=== PATIENT | male | born 1945 | race Caucasian/White ===

== ENCOUNTER 2016-12-09 10:13 | Inpatient (IN) | payer MEDICARE, BC ==
[2016-12-09] VITALS (7 sets, daily range): BP systolic 135–146; BP diastolic 62–91; PULSE 93–98; RESP 20; Ht 177.8 cm; Wt 88.6 kg
[~2016-12-09] VITALS: Ht 177.8 cm; Wt 88.6 kg
[2016-12-09] MEDS ORDERED: DEXTROSE 50% 50 ML SYRINGE IV PRN ×2 (12:00)
[2016-12-09] MEDS ORDERED: GLUCOSE GEL 15 GRAM TUBE BUCCAL PRN (12:00)
[2016-12-09] MEDS ORDERED: GLUCAGON 1 MG INJ IM PRN (12:00)
[2016-12-09] MEDS ORDERED: GLUCOSE GEL 15 GRAM TUBE PO PRN ×2 (12:00)
--- NOTE | 2016-12-09 12:02 | CONS ---
Date/Time of Note Date/Time of Note DATE: 12/09/16 TIME: 11:54 Assessment/Plan Assessment/Plan Chief Complaint/Hosp Course 1) pneumonia, failed out pt therapy hx of MRSA bacteremia in the past get nasal swab for MRSA get sputum cx get repeat CXR start ceftriaxone with doxycycline check procalcitonin doubt viral infection 2) CAD with hx of ND and CABG 3)hx of lumbar osteomyelitis with MRSA bacteremia no sign of infection for this Problems: Consultation Date/Type/Reason Admit Date/Time Dec 09, 2016 at 10:59 Date of Consultation: Dec 09, 2016 Type of Consultation: ID Hx of Present Illness pt admitted due to persistent cough of green phlegm despite oral amoxicillin and then oral azithro He has been sick for about 10 days. He had a fever about 5 days ago. He had been feeling better up to that time then he also developed a new sore throat, mostly on the R side and R ear pain too He developed a chill yesterday No N, V, D. No back pain, rashes, muscle aches, joint pains. Past Medical History dm, CAD, MT, hypertension, foot ulcers, Lumbar osteomyelitis with MRSA bacteremia Past Surgical History CABG Exam/Review of Systems Vital Signs Vitals Vital Signs Date Time Temp Pulse Resp B/P Pulse Ox O2 Delivery O2 Flow Rate FiO2 12/09/16 11:50 94 Exam Constitutional: alert, oriented Psych: no complaints Head: normocephalic Eyes: nl conjunctiva, nl sclera ENMT: mucosa pink and moist Neck: other (no lymph nodes appreciated), supple Respiratory: clear to auscultation Cardiovascular: regular rate and rhythm Gastrointestinal: non-tender, soft Musculoskeletal: nl extremities to inspection Neurological: other (non focal) Lymph: nl lymph nodes Medications Medications Current Medications Doxycycline Hyclate (Vibramycin) 100 mg BID PO ; Start 12/09/16 at 12:00; Status UNV Miscellaneous Information (* Miscellaneous Pharmacy Order) HYPOGLYCEMIA PROTOCOL w... ONCE ONCE XX ; Start 12/09/16 at 12:00; Stop 12/09/16 at 12:01 Miscellaneous Information (* Miscellaneous Pharmacy Order) Discontinue Glyburide , Glipizide,... ONCE ONCE XX ; Start 12/09/16 at 12:00; Stop 12/09/16 at 12:01 Miscellaneous Information (* Miscellaneous Pharmacy Order) Discontinue all previ... ONCE ONCE XX ; Start 12/09/16 at 12:00; Stop 12/09/16 at 12:01 Diagnostic Test (Pha) (Accu-Chek) 02 XX ; Start 12/10/16 at 02:00 JESSICA CARBALLO MD Dec 09, 2016 12:02
[2016-12-09] MEDS ORDERED: CARV12.598 PO (13:18)
[2016-12-09] MEDS: DOXYCYCLINE 100 MG TAB PO SCH ×2 (13:23→20:55)
[2016-12-09 13:25] LABS: ADD SCAN DIFF NO
[2016-12-09] MEDS: INSULIN ASPART [NOVOLOG] 3 ML PEN SC SCH ×3 (13:25→20:53)
[2016-12-09 13:26] LABS: ABNORMAL IP MESSAGE 1; HEMATOCRIT 32.6 % (42.0-52.0); HEMOGLOBIN 10.9 g/dl (14.0-18.0); MEAN CORPUSCULAR HEMOGLOBIN 29.6 pg (29.0-33.0); MEAN CORPUSCULAR HGB CONC 33.4 g/dl (32.0-37.0); MEAN CORPUSCULAR VOLUME 88.6 fl (82.0-101.0); MEAN PLATELET VOLUME 8.6 fl (7.4-10.4); PLATELET COUNT 247 10^3/UL (140-415); RED BLOOD COUNT 3.68 10^6/ul (4.70-6.10); RED CELL DISTRIBUTION WIDTH 13.4 % (11.5-14.5); WHITE BLOOD COUNT 18.1 10^3/ul (4.8-10.8)
[2016-12-09] MEDS ORDERED: CEPASTAT LOZENGE MT PRN (13:30)
[2016-12-09] MEDS ORDERED: PHENOL 1.4% SOLN 180 ML BTL MT PRN (13:30)
--- NOTE | 2016-12-09 13:32 | CONS ---
Date/Time of Note Date/Time of Note DATE: 12/09/16 TIME: 13:32 Consultation Date/Type/Reason Admit Date/Time Dec 09, 2016 at 10:59 Initial Consult Date 12/09/16 Type of Consultation: hemeonc Exam/Review of Systems Vital Signs Vitals Vital Signs Date Time Temp Pulse Resp B/P Pulse Ox O2 Delivery O2 Flow Rate FiO2 12/09/16 12:19 98.7 98 20 135/62 97 Results Results 24 hrs Laboratory Tests Test 12/09/16 12:16 Bedside Glucose 174 Medications Medications Current Medications Doxycycline Hyclate (Vibramycin) 100 mg BID PO Last administered on 12/09/16t 13 :23; Admin Dose 100 MG; Start 12/09/16 at 13:00 Diagnostic Test (Pha) 1 ea 1 ea 02 XX ; Start 12/10/16 at 02:00 Ceftriaxone Sodium (Rocephin) 50 ml @ 100 mls/hr Q24H IVPB ; Start 12/09/16 at 13:00 Miscellaneous Information 1 ea NOTE XX ; Start 12/09/16 at 12:00 Glucose (Glutose) 15 gm Q15M PRN PO DECREASED GLUCOSE; Start 12/09/16 at 12:00 Glucose (Glutose) 22.5 gm Q15M PRN PO DECREASED GLUCOSE; Start 12/09/16 at 12:00 Dextrose (D50w Syringe) 25 ml Q15M PRN IV DECREASED GLUCOSE; Start 12/09/16 at 12:00 Dextrose (D50w Syringe) 50 ml Q15M PRN IV DECREASED GLUCOSE; Start 12/09/16 at 12:00 Glucagon (Glucagen) 1 mg Q15M PRN IM DECREASED GLUCOSE; Start 12/09/16 at 12:00 Glucose (Glutose) 15 gm Q15M PRN BUCCAL DECREASED GLUCOSE; Start 12/09/16 at 12: 00 JESÚS KIM MD Dec 09, 2016 13:32
[2016-12-09] MEDS: CEFTRIAXONE 1 GM/50 ML (PMX) 50 ML IVPB SCH (13:47)
[2016-12-09 13:49] LABS: ALBUMIN 3.8 g/dl (3.3-4.9)
[2016-12-09 13:50] LABS: CHLORIDE 104 mmol/L (97-110); POTASSIUM 4.7 mmol/L (3.5-5.1); SODIUM 135 mmol/L (135-144)
[2016-12-09 13:52] LABS: ALBUMIN/GLOBULIN RATIO 1.22; ALKALINE PHOSPHATASE 93 IU/L (42-121); ANION GAP 12 (8-16); ASPARTATE AMINO TRANSFERASE 27 IU/L (15-46); BILIRUBIN,INDIRECT 0.2 mg/dl (0-1.1); BILIRUBIN,TOTAL 0.2 mg/dl (0.2-1.3); BLOOD UREA NITROGEN 25 mg/dl (7-20); CARBON DIOXIDE 24 mmol/L (21-31); CHOLESTEROL 105 mg/dl (100-200); CREATININE 1.46 mg/dl (0.61-1.24); TOTAL PROTEIN 6.9 g/dl (6.1-8.1)
[2016-12-09 13:53] LABS: ALANINE AMINOTRANSFERASE 36 IU/L (13-69); CALCIUM 9.5 mg/dl (8.4-10.2); CHOL/HDL RATIO 5.5 RATIO; GLUCOSE 173 mg/dl (70-220); HDL CHOLESTEROL 19 mg/dl (31-75); TRIGLYCERIDES 133 mg/dl (0-149)
[2016-12-09 14:15] LABS: ADD UMIC NO; URINE BILIRUBIN (Dip) NEGATIVE (NEGATIVE); URINE BLOOD (Dip) NEGATIVE (NEGATIVE); URINE COLOR YELLOW (YELLOW); URINE GLUCOSE (Dip) NEGATIVE (NEGATIVE); URINE KETONES (Dip) NEGATIVE (NEGATIVE); URINE LEUKOCYTE ESTERASE (Dip) NEGATIVE (NEGATIVE); URINE NITRITE (Dip) NEGATIVE (NEGATIVE); URINE TOTAL PROTEIN (Dip) NEGATIVE (NEGATIVE); URINE UROBILINOGEN (Dip) 0.2 E.U./dL (0.1-1.0)
[2016-12-09 14:41] LABS: URIC ACID 5.9 mg/dl (3.1-7.9)
[2016-12-09 14:55] LABS: B-TYPE NATRIURETIC PEPTIDE 1840 PG/ML (0-125)
[2016-12-09 14:57] LABS: IMMUNOGLOBULIN G 498 mg/dl (700-1600)
[2016-12-09 14:59] LABS: IMMUNOGLOBULIN A 51 mg/dl (70-400)
[2016-12-09 15:03] LABS: FREE T3 2.93 pg/ml (2.77-5.27)
[2016-12-09 15:06] LABS: BASOPHIL # 0.2 10^3/ul (0.0-0.1); LYMPHOCYTES # 7.6 10^3/ul (0.8-2.9); MONOCYTE # 0.9 10^3/ul (0.3-0.9); NEUTROPHIL # 7.1 10^3/ul (1.6-7.5)
--- NOTE | 2016-12-09 15:12 | RADRPT ---
PROCEDURE: XR Chest. CLINICAL INDICATION: Chills, cough TECHNIQUE: PA and lateral chest x-ray. COMPARISON: None. FINDINGS: No acute infiltrate, pleural effusion or pneumothorax is identified. The cardiomediastinal silhouet te is unremarkable. The patient is status post sternotomy. Aortic atherosclerotic calcification is noted. The osseous structures are unremarkable. IMPRESSION: 1. No evidence of acute cardiopulmonary process. 2. Aortic atherosclerosis. RPTAT: QQ .Adalberto Persaud MD, MD Date Time Electronically viewed and signed by .Adalberto Persaud MD, on 12/09/2016 15:12 .R/
[2016-12-09 15:17] LABS: TRIIODOTHYRONINE 0.88 ng/ml (0.97-1.69)
[2016-12-09 15:22] LABS: FOLATE > 20.0 ng/ml (2.8-20.0)
[2016-12-09 15:30] LABS: IMMUNOGLOBULIN M < 25 mg/dl (40-230)
[2016-12-09] MEDS: metFORMIN 500 MG TAB PO SCH (17:07)
[2016-12-09] MEDS: VITAMIN B COMPLEX/VIT C CAP PO SCH (17:07)
[2016-12-09] MEDS: ATORVASTATIN 80 MG TAB PO SCH (20:55)
[2016-12-09] MEDS: LACTOBACILLUS CHEW TAB PO SCH (20:55)
[2016-12-09] MEDS: FERROUS SULFATE (EC) 325 MG TAB PO SCH (20:55)
[2016-12-09] MEDS: DOCUSATE SODIUM 100 MG CAP PO SCH (20:56)
[2016-12-09] MEDS: FAMOTIDINE 20 MG TAB PO SCH (20:56)
[2016-12-09] MEDS: MAGNESIUM OXIDE 400 MG TAB PO SCH (21:55)
[2016-12-10] VITALS (11 sets, daily range): BP systolic 114–148; BP diastolic 58–78; PULSE 75–99; RESP 19–20
[2016-12-10] MEDS: ACCU-CHEK XX SCH (02:00)
[2016-12-10 08:13] LABS: ADD SCAN DIFF NO
[2016-12-10] MEDS: CHOLECALCIFEROL 1,000 UNIT TAB PO SCH (08:20)
[2016-12-10] MEDS: FISH OIL 1,000 MG CAP PO SCH (08:20)
[2016-12-10] MEDS: FERROUS SULFATE (EC) 325 MG TAB PO SCH ×2 (08:20→21:05)
[2016-12-10] MEDS: MAGNESIUM OXIDE 400 MG TAB PO SCH ×2 (08:21→21:05)
[2016-12-10] MEDS: MULTIVITAMINS THERAPEUTIC TAB PO SCH (08:21)
[2016-12-10] MEDS: LACTOBACILLUS CHEW TAB PO SCH ×3 (08:21→21:06)
[2016-12-10] MEDS: CLOPIDOGREL 75 MG TAB PO SCH (08:21)
[2016-12-10] MEDS: DOCUSATE SODIUM 100 MG CAP PO SCH ×2 (08:21→21:05)
[2016-12-10] MEDS: LINAGLIPTIN 5 MG TABLET PO SCH (08:21)
[2016-12-10] MEDS: ASPIRIN 81 MG TAB PO SCH (08:21)
[2016-12-10] MEDS: FAMOTIDINE 20 MG TAB PO SCH ×2 (08:21→21:05)
[2016-12-10] MEDS: metFORMIN 500 MG TAB PO SCH ×2 (08:21→17:17)
[2016-12-10] MEDS: ASCORBIC ACID 250 MG TAB PO SCH (08:21)
[2016-12-10] MEDS: VALSARTAN 80 MG TAB PO SCH (08:22)
[2016-12-10] MEDS: INSULIN ASPART [NOVOLOG] 3 ML PEN SC SCH ×4 (08:25→21:11)
[2016-12-10 08:28] LABS: ABNORMAL IP MESSAGE 1; HEMATOCRIT 31.9 % (42.0-52.0); HEMOGLOBIN 10.4 g/dl (14.0-18.0); MEAN CORPUSCULAR HGB CONC 32.6 g/dl (32.0-37.0); MEAN CORPUSCULAR VOLUME 88.9 fl (82.0-101.0); MEAN PLATELET VOLUME 8.7 fl (7.4-10.4); PLATELET COUNT 236 10^3/UL (140-415); RED BLOOD COUNT 3.59 10^6/ul (4.70-6.10); RED CELL DISTRIBUTION WIDTH 13.6 % (11.5-14.5)
[2016-12-10] MEDS: DOXYCYCLINE 100 MG TAB PO SCH ×2 (08:28→21:05)
[2016-12-10 08:39] LABS: ALBUMIN 3.5 g/dl (3.3-4.9); POTASSIUM 4.7 mmol/L (3.5-5.1)
[2016-12-10 08:41] LABS: CREATININE 1.29 mg/dl (0.61-1.24)
[2016-12-10 08:42] LABS: ALBUMIN/GLOBULIN RATIO 1.2; BILIRUBIN,INDIRECT 0.2 mg/dl (0-1.1); BILIRUBIN,TOTAL 0.2 mg/dl (0.2-1.3); CALCIUM 9.3 mg/dl (8.4-10.2); TOTAL PROTEIN 6.4 g/dl (6.1-8.1)
--- NOTE | 2016-12-10 10:34 | CONS ---
Date/Time of Note Date/Time of Note DATE: 12/10/16 TIME: 10:34 Consultation Date/Type/Reason Admit Date/Time Dec 09, 2016 at 10:59 Initial Consult Date 12/09/16 Type of Consultation: [facility] [place] Exam/Review of Systems Vital Signs Vitals Vital Signs Date Time Temp Pulse Resp B/P Pulse Ox O2 Delivery O2 Flow Rate FiO2 12/10/16 08:05 75 12/10/16 07:37 99.1 20 136/74 94 Intake and Output 12/09/16 12/09/16 12/10/16 15:00 23:00 07:00 Intake Total 720 ml Balance 720 ml Results Result Diagram: 12/10/16 0724 12/10/1624 Results 24 hrs Laboratory Tests Test 12/09/16 12:16 12/09/16 12:52 12/09/16 13:00 12/09/16 17:01 Bedside Glucose 174 228 H White Blood Count 18.1 #H Red Blood Count 3.68 #L Hemoglobin 10.9 L Hematocrit 32.6 L Mean Corpuscular Volume 88.6 Mean Corpuscular Hemoglobin 29.6 Mean Corpuscular Hemoglobin Concent 33.4 Red Cell Distribution Width 13.4 # Platelet Count 247 Mean Platelet Volume 8.6 # Neutrophils % 39.0 Band Neutrophils % 9.0 H Lymphocytes % 42.0 Reactive Lymphocytes % 4.0 Monocytes % 5.0 Basophils % 1.0 Neutrophils # 7.1 Lymphocytes # 7.6 H Monocytes # 0.9 Basophils # 0.2 H Erythrocyte Sedimentation Rate 70.0 H Sodium Level 135 Potassium Level 4.7 Chloride Level 104 Carbon Dioxide Level 24 Anion Gap 12 Blood Urea Nitrogen 25 H Creatinine 1.46 H Glucose Level 173 Hemoglobin A1c 8.2 H Uric Acid 5.9 Calcium Level 9.5 Magnesium Level 2.0 Total Bilirubin 0.2 Direct Bilirubin 0.00 Indirect Bilirubin 0.2 Aspartate Amino Transf (AST/SGOT) 27 Alanine Aminotransferase (ALT/SGPT) 36 Alkaline Phosphatase 93 B-Type Natriuretic Peptide 1840 H Total Protein 6.9 Albumin 3.8 Globulin 3.10 Albumin/Globulin Ratio 1.22 Prealbumin 19.7 Triglycerides Level 133 Cholesterol Level 105 LDL Cholesterol, Calculated 59 HDL Cholesterol 19 L Cholesterol/HDL Ratio 5.5 Vitamin B12 Level 911 Folate > 20.0 H Thyroid Stimulating Hormone (TSH) 1.250 Free Triiodothyronine (T3) pg/mL 2.93 Total Triiodothyronine 0.88 L Parathyroid Hormone (Intact) Immunoglobulin A 51 L Immunoglobulin G 498 L Immunoglobulin M < 25 L Urine Color YELLOW Urine Clarity CLEAR Urine pH 5.0 Urine Specific [place] 1.020 Urine Ketones NEGATIVE Urine Nitrite NEGATIVE Urine Bilirubin NEGATIVE Urine Urobilinogen 0.2 E.U./dL Urine Leukocyte Esterase NEGATIVE Urine Hemoglobin NEGATIVE Urine Glucose NEGATIVE Urine Total Protein NEGATIVE Test 12/09/16 20:51 12/10/16 02:07 12/10/16 07:24 12/10/16 07:30 Bedside Glucose 254 H 222 H 232 H White Blood Count 20.3 H Red Blood Count 3.59 L Hemoglobin 10.4 L Hematocrit 31.9 L Mean Corpuscular Volume 88.9 Mean Corpuscular Hemoglobin 29.0 Mean Corpuscular Hemoglobin Concent 32.6 Red Cell Distribution Width 13.6 Platelet Count 236 Mean Platelet Volume 8.7 Neutrophils % Lymphocytes % Monocytes % Neutrophils # Lymphocytes # Monocytes # Sodium Level 135 Potassium Level 4.7 Chloride Level 105 Carbon Dioxide Level 23 Anion Gap 12 Blood Urea Nitrogen 25 H Creatinine 1.29 H Glucose Level 224 H Calcium Level 9.3 Total Bilirubin 0.2 Direct Bilirubin 0.00 Indirect Bilirubin 0.2 Aspartate Amino Transf (AST/SGOT) 21 Alanine Aminotransferase (ALT/SGPT) 32 Alkaline Phosphatase 84 Total Protein 6.4 Albumin 3.5 Globulin 2.90 Albumin/Globulin Ratio 1.20 Medications Medications Current Medications Doxycycline Hyclate (Vibramycin) 100 mg BID PO Last administered on 12/10/16 08 :28; Admin Dose 100 MG; Start 12/09/16 at 13:00 Diagnostic Test (Pha) 1 ea 1 ea 02 XX ; Start 12/10/16 at 02:00 Ceftriaxone Sodium (Rocephin) 50 ml @ 100 mls/hr Q24H IVPB Last administered on 12/09/16 13:47; Admin Dose 100 MLS/HR; Start 12/09/16 at 13:00 Miscellaneous Information 1 ea NOTE XX ; Start 12/09/16 at 12:00 Glucose (Glutose) 15 gm Q15M PRN PO DECREASED GLUCOSE; Start 12/09/16 at 12:00 Glucose (Glutose) 22.5 gm Q15M PRN PO DECREASED GLUCOSE; Start 12/09/16 at 12:00 Dextrose (D50w Syringe) 25 ml Q15M PRN IV DECREASED GLUCOSE; Start 12/09/16 at 12:00 Dextrose (D50w Syringe) 50 ml Q15M PRN IV DECREASED GLUCOSE; Start 12/09/16 at 12:00 Glucagon (Glucagen) 1 mg Q15M PRN IM DECREASED GLUCOSE; Start 12/09/16 at 12:00 Glucose (Glutose) 15 gm Q15M PRN BUCCAL DECREASED GLUCOSE; Start 12/09/16 at 12: 00 Carvedilol (Coreg) 12.5 mg BID PO Last administered on 12/10/16 08:23; Admin Dose 12.5 MG; Start 12/09/16 at 21:00 Spironolactone (Aldactone) 25 mg MONWEDFRI PO ; Start 12/11/16 at 09:00 Aspirin (Aspirin) 81 mg DAILY PO Last administered on 12/10/16 08:21; Admin Dose 81 MG; Start 12/10/16 at 09:00 Clopidogrel Bisulfate (plaVIX) 75 mg DAILY PO Last administered on 12/10/16 08: 21; Admin Dose 75 MG; Start 12/10/16 at 09:00 Lactobacillus Acidoph/Bulgaricus (Floranex) 2 tab TID PO Last administered on 08:21; Admin Dose 2 TAB; Start 12/09/16 at 21:00 Docusate Sodium (Colace) 100 mg BID PO Last administered on 12/10/16 08:21; Admin Dose 100 MG; Start 12/09/16 at 21:00 Atorvastatin Calcium (Lipitor) 80 mg HS PO Last administered on 12/09/16 20:55 ; Admin Dose 80 MG; Start 12/09/16 at 21:00 Magnesium Oxide (Mag-Ox 400) 400 mg BID PO Last administered on 12/10/16 08:21 ; Admin Dose 400 MG; Start 12/09/16 at 21:00 Multivitamins Therapeutic (Theragran) 1 tab DAILY PO Last administered on 08:21; Admin Dose 1 TAB; Start 12/10/16 at 09:00 Fish Oil (Fish Oil) 4,000 mg AM PO Last administered on 12/10/16 08:20; Admin Dose 4,000 MG; Start 12/10/16 at 09:00 Famotidine (Pepcid) 10 mg BID PO Last administered on 12/10/16 08:21; Admin Dose 10 MG; Start 12/09/16 at 21:00 Valsartan (Diovan) 80 mg DAILY PO Last administered on 12/10/16 08:22; Admin Dose 80 MG; Start 12/10/16 at 09:00 Ascorbic Acid (Vitamin C) 250 mg DAILY PO Last administered on 12/10/16 08:21; Admin Dose 250 MG; Start 12/10/16 at 09:00 Linagliptin (Tradjenta) 5 mg DAILY PO Last administered on 12/10/16 08:21; Admin Dose 5 MG; Start 12/10/16 at 09:00 Ferrous Sulfate (Ferrous Sulfate (Ec)) 325 mg BID PO Last administered on 08:20; Admin Dose 325 MG; Start 12/09/16 at 21:00 Phenol (Cepastat Lozenge) 1 lozenge Q1H PRN [place] sore throat; Start 12/09/16 at 13 :30 Phenol (Chloraseptic Throat [place]) 2 spray Q2H PRN [place] SORE THROAT Last administered on 12/09/16 16:59; Admin Dose 2 SPRAY; Start 12/09/16 at 13:30 Cholecalciferol (Vitamin D) 5,000 unit DAILY PO Last administered on 12/10/16 08:20; Admin Dose 5,000 UNIT; Start 12/10/16 at 09:00 JESÚS KIM MD Dec 10, 2016 10:34
[2016-12-10 11:03] LABS: LYMPHOCYTES # 12.2 10^3/ul (0.8-2.9); NEUTROPHIL # 6.3 10^3/ul (1.6-7.5)
[2016-12-10] MEDS: CEFTRIAXONE 1 GM/50 ML (PMX) 50 ML IVPB SCH (12:26)
--- NOTE | 2016-12-10 12:57 | CONS ---
Date/Time of Note Date/Time of Note DATE: 12/10/16 TIME: 12:55 Assessment/Plan Assessment/Plan Chief Complaint/Hosp Course 1) pneumonia, failed out pt therapy hx of MRSA bacteremia in the past get nasal swab for MRSA get sputum cx get repeat CXR start ceftriaxone with doxycycline check procalcitonin doubt viral infection 12/10 - pt is feeling better and his WBC is around the usual level for him (CLL) can likely change to po omnicef with doxy tomorrow sputum cx is NGTD 2) CAD with hx of MA and CABG 3)hx of lumbar osteomyelitis with MRSA bacteremia no sign of infection for this 4) CLL Problems: Consultation Date/Type/Reason Admit Date/Time Dec 09, 2016 at 10:59 Initial Consult Date 12/09/16 Type of Consultation: ID [id number] HR Interval Summary Free Text/Dictation pt is feeling better no N, V, D pt can breathe more easily Exam/Review of Systems Vital Signs Vitals Vital Signs Date Time Temp Pulse Resp B/P Pulse Ox O2 Delivery O2 Flow Rate FiO2 12/10/16 12:05 89 12/10/16 11:35 99.3 20 114/58 97 Intake and Output 12/09/16 12/09/16 12/10/16 15:00 23:00 07:00 Intake Total 720 ml Balance 720 ml Exam Constitutional: alert, oriented Head: normocephalic Eyes: nl conjunctiva ENMT: mucosa pink and moist Respiratory: clear to auscultation Cardiovascular: regular rate and rhythm Gastrointestinal: non-tender, soft Results Result Diagram: 12/10/16 0724 12/10/16 0724 Results 24 hrs Laboratory Tests Test 12/09/16 13:00 12/09/16 17:01 12/09/16 20:51 12/10/16 02:07 Urine Color YELLOW Urine Clarity CLEAR Urine pH 5.0 Urine Specific [place] 1.020 Urine Ketones NEGATIVE Urine Nitrite NEGATIVE Urine Bilirubin NEGATIVE Urine Urobilinogen 0.2 E.U./dL Urine Leukocyte Esterase NEGATIVE Urine Hemoglobin NEGATIVE Urine Glucose NEGATIVE Urine Total Protein NEGATIVE Bedside Glucose 228 H 254 H 222 H Test 12/10/16 07:24 12/10/16 07:30 12/10/16 11:56 White Blood Count 20.3 H Red Blood Count 3.59 L Hemoglobin 10.4 L Hematocrit 31.9 L Mean Corpuscular Volume 88.9 Mean Corpuscular Hemoglobin 29.0 Mean Corpuscular Hemoglobin Concent 32.6 Red Cell Distribution Width 13.6 Platelet Count 236 Mean Platelet Volume 8.7 Neutrophils % 31.0 L Band Neutrophils % 4.0 Lymphocytes % Monocytes % 5.0 Neutrophils # 6.3 Lymphocytes # 12.2 H Monocytes # 1.0 H Sodium Level 135 Potassium Level 4.7 Chloride Level 105 Carbon Dioxide Level 23 Anion Gap 12 Blood Urea Nitrogen 25 H Creatinine 1.29 H Glucose Level 224 H Calcium Level 9.3 Total Bilirubin 0.2 Direct Bilirubin 0.00 Indirect Bilirubin 0.2 Aspartate Amino Transf (AST/SGOT) 21 Alanine Aminotransferase (ALT/SGPT) 32 Alkaline Phosphatase 84 Total Protein 6.4 Albumin 3.5 Globulin 2.90 Albumin/Globulin Ratio 1.20 Bedside Glucose 232 H 221 H Medications Medications Current Medications Doxycycline Hyclate (Vibramycin) 100 mg BID PO Last administered on 12/10/16 08 :28; Admin Dose 100 MG; Start 12/09/16 at 13:00 Diagnostic Test (Pha) 1 ea 1 ea 02 XX ; Start 12/10/16 at 02:00 Ceftriaxone Sodium (Rocephin) 50 ml @ 100 mls/hr Q24H IVPB Last administered on 12/10/16 12:26; Admin Dose 100 MLS/HR; Start 12/09/16 at 13:00 Miscellaneous Information 1 ea NOTE XX ; Start 12/09/16 at 12:00 Glucose (Glutose) 15 gm Q15M PRN PO DECREASED GLUCOSE; Start 12/09/16 at 12:00 Glucose (Glutose) 22.5 gm Q15M PRN PO DECREASED GLUCOSE; Start 12/09/16 at 12:00 Dextrose (D50w Syringe) 25 ml Q15M PRN IV DECREASED GLUCOSE; Start 12/09/16 at 12:00 Dextrose (D50w Syringe) 50 ml Q15M PRN IV DECREASED GLUCOSE; Start 12/09/16 at 12:00 Glucagon (Glucagen) 1 mg Q15M PRN IM DECREASED GLUCOSE; Start 12/09/16 at 12:00 Glucose (Glutose) 15 gm Q15M PRN BUCCAL DECREASED GLUCOSE; Start 12/09/16 at 12: 00 Carvedilol (Coreg) 12.5 mg BID PO Last administered on 12/10/16 08:23; Admin Dose 12.5 MG; Start 12/09/16 at 21:00 Spironolactone (Aldactone) 25 mg MONWEDFRI PO ; Start 12/11/16 at 09:00 Aspirin (Aspirin) 81 mg DAILY PO Last administered on 12/10/16 08:21; Admin Dose 81 MG; Start 12/10/16 at 09:00 Clopidogrel Bisulfate (plaVIX) 75 mg DAILY PO Last administered on 12/10/16 08: 21; Admin Dose 75 MG; Start 12/10/16 at 09:00 Lactobacillus Acidoph/Bulgaricus (Floranex) 2 tab TID PO Last administered on 12:26; Admin Dose 2 TAB; Start 12/09/16 at 21:00 Docusate Sodium (Colace) 100 mg BID PO Last administered on 12/10/16 08:21; Admin Dose 100 MG; Start 12/09/16 at 21:00 Atorvastatin Calcium (Lipitor) 80 mg HS PO Last administered on 12/09/16 20:55 ; Admin Dose 80 MG; Start 12/09/16 at 21:00 Magnesium Oxide (Mag-Ox 400) 400 mg BID PO Last administered on 12/10/16 08:21 ; Admin Dose 400 MG; Start 12/09/16 at 21:00 Multivitamins Therapeutic (Theragran) 1 tab DAILY PO Last administered on 08:21; Admin Dose 1 TAB; Start 12/10/16 at 09:00 Fish Oil (Fish Oil) 4,000 mg AM PO Last administered on 12/10/16 08:20; Admin Dose 4,000 MG; Start 12/10/16 at 09:00 Famotidine (Pepcid) 10 mg BID PO Last administered on 12/10/16 08:21; Admin Dose 10 MG; Start 12/09/16 at 21:00 Valsartan (Diovan) 80 mg DAILY PO Last administered on 12/10/16 08:22; Admin Dose 80 MG; Start 12/10/16 at 09:00 Ascorbic Acid (Vitamin C) 250 mg DAILY PO Last administered on 12/10/16 08:21; Admin Dose 250 MG; Start 12/10/16 at 09:00 Linagliptin (Tradjenta) 5 mg DAILY PO Last administered on 12/10/16 08:21; Admin Dose 5 MG; Start 12/10/16 at 09:00 Ferrous Sulfate (Ferrous Sulfate (Ec)) 325 mg BID PO Last administered on 08:20; Admin Dose 325 MG; Start 12/09/16 at 21:00 Phenol (Cepastat Lozenge) 1 lozenge Q1H PRN [place] sore throat; Start 12/09/16 at 13 :30 Phenol (Chloraseptic Throat [place]) 2 spray Q2H PRN [place] SORE THROAT Last administered on 12/09/16 16:59; Admin Dose 2 SPRAY; Start 12/09/16 at 13:30 Cholecalciferol (Vitamin D) 5,000 unit DAILY PO Last administered on 12/10/16 08:20; Admin Dose 5,000 UNIT; Start 12/10/16 at 09:00 Diagnostic Test (Pha) (Accu-Chek) 1 ea 02 XX ; Start 12/11/16 at 02:00 JESSICA CARBALLO MD Dec 10, 2016 12:57
--- NOTE | 2016-12-10 13:49 | CONS ---
DATE OF ADMISSION: 12/09/2016 DATE OF CONSULTATION: 12/10/2016 REASON FOR CONSULTATION: Right foot ulceration. HISTORY OF PRESENT ILLNESS: This is a 71-year-old gentleman who was admitted for pneumonia, had suad led outpatient treatment, was noted upon admission to have a recurrent right foot ulceration. The p atient relates chronic ulceration which had healed until recently and the patient relates possibly i ncrease in ambulation or driving. The patient states he has had prior supervised care with debridem ent when the ulcerations were open. The patient had been on amoxicillin and azithromycin for pneumo burak. PAST MEDICAL HISTORY: Diabetes type 2, coronary artery disease, hypertension, diabetic foot ulcerat ion, lumbar osteomyelitis with MRSA bacteremia. PAST SURGICAL HISTORY: CABG. REVIEW OF SYSTEMS: Cough. Denies chest pain or shortness of breath. PHYSICAL EXAMINATION: VITAL SIGNS: Temperature 99.3, pulse 76, respiratory rate 20, blood pressure 114/58, pulse oximetry is 97%. GENERAL: The patient alert, oriented. HEAD: Normocephalic, atraumatic. Trachea is midline. LUNGS: Regular respiration, nonlabored EXTREMITIES: The patient has 2+ popliteal pulse, 2+ DP and PT pulses bilaterally. There is dry ski n, callus, right plantar hallux with dried sanguineous exudate. There is no fluctuance or blister f ormation, mild erythema, heavy callus formation. Absent protective sensation to this site. The pat ient without any other signs of decubitus ulceration. No tender popliteal lymph nodes. The patient has 5/5 dorsiflexion and plantarflexion bilateral ankles, does have hallux valgus with hallux inter phalangeus deformity bilaterally. Decreased protective sensation. LABORATORIES: WBC 20.3, hemoglobin 10.4, hematocrit 31.9, platelets 236. Sodium 135, potassium 4.7 , chloride 105, CO2 23, BUN 25, creatinine 1.29, glucose 224. Respiratory culture: Normal respirato ry sheila. Urine culture no growth. Chest x-ray: No evidence of acute cardiopulmonary disease, aor tic atherosclerosis. ASSESSMENT: 1. Leukocytosis. 2. Pneumonia, failed outpatient therapy with history of MRSA bacteremia. 3. Right foot diabetic foot ulceration. 4. Hallux valgus deformity. 5. Diabetes with peripheral neuropathy.: PLAN: Patient seen and evaluated, discussed clinical findings and recommendations and given chronic ity and history of ulceration right foot wound, would recommend obtaining radiographs 3 views of the right foot weightbearing and debridement of ulceration on the right foot and obtaining cultures at that time. Can perform at bedside. Long-term may require a custom orthosis shoes or surgical corre ction of deformity. Thank you for this consultation. Dictated By: ANDREEA NDIAYE DPM RB/SAW Conf#: [id number] DID#: [id number] CC: JESÚS KIM MD; ANDREEA NDIAYE DPM;*EndCC*
--- NOTE | 2016-12-10 15:37 | HP ---
DATE OF ADMISSION: 12/09/2016 CHIEF COMPLAINT: Cough, productive sputum, pneumonia. HISTORY OF PRESENT ILLNESS: This is a 71-year-old male with a past medical history of coronary franco ry disease, history of hypertension, history of obesity, dyslipidemia, diabetes, chronic kidney dise ase, history of diabetic foot ulcer who presents to [facility] for IV antibiotics for underlying pneumonia after failing outpatient management. The patient was on antibiotic therapy for bronchitis. The patient states he has been sick for the last several days with productive coug h, fevers. The patient developed chills in the last 24 hours prior to admission. As a result, he w as brought in for a direct admission from underlying pneumonia. The patient, upon arrival, was note d to have an elevated white count of 18,000. He was started on IV antibiotics, was seen by infectio us disease specialist, Dr. Navarro. The patient, since starting antibiotics, has felt mildly improved, but continues to have generalized weakness and intermittent chills. The patient denies any hemopty sis, hemetemesis, hematochezia. PAST MEDICAL HISTORY: As stated above, history of coronary artery disease, hypertension, diabetes, history of bilateral foot ulcers, history of osteomyelitis, history of CLL. PAST SURGICAL HISTORY: Status post CABG. ALLERGIES: NO KNOWN DRUG ALLERGIES. MEDICATIONS: Have been reviewed and reconciled. FAMILY HISTORY: Positive for coronary artery disease, no history of kidney disease. SOCIAL HISTORY: Lives at home. Denies any alcohol use. REVIEW OF SYSTEMS: A 14-point review of systems was conducted. Pertinent positives in HPI, otherwi se negative. PHYSICAL EXAMINATION: VITAL SIGNS: Blood pressure 114/ , respirations 20, pulse 76, temperature 99.3. HEENT: Head is normocephalic. NECK: Supple. HEART: Regular rate. LUNGS: Show diminished breath sounds at the base. ABDOMEN: Soft, nontender to palpation; no rebound or guarding. EXTREMITIES: Negative for clubbing, cyanosis; no edema. DERMATOLOGIC: No rashes. MUSCULOSKELETAL: No joint effusions. NEUROLOGIC: No focal deficits. LABORATORY DATA: The patient's white count is .3, hemoglobin 10.4, hematocrit 31.9, platelet c ount 236. Sodium 135, potassium 4.6, chloride 105, BUN 25, creatinine 1.29. ASSESSMENT AND PLAN: This is a 71-year-old male who presents with: 1. Sepsis secondary to bronchitis, possible pneumonia. The patient is currently on broad spectrum antibiotics; will continue. Will follow up cultures. Follow up with infectious disease, Dr. Navarro. 2. Nonoliguric acute kidney injury on top of chronic kidney disease, with a previous baseline creat inine around 0.9 mg/dL. Etiology of current acute kidney injury is likely secondary to hemodynamics , questionable sepsis. The patient's urinalysis is bland. Plan at this point is to continue curren t treatment plan. Supportive care, renally dose all meds, continue treating underlying pneumonia. Monitor closely. The patient is currently on ARB. Will continue for now. 3. CLL. The patient is being followed by Dr. Tarango. Will defer to her for management. 4. Coronary artery disease. The patient is status post CABG, currently stable. Continue medical m anagement. 5. Diabetes, continue Accu-Cheks, insulin sliding scale. 6. Hypertension. Continue current blood pressure regimen. 7. History of congestive heart failure. The patient currently compensated. Continue to monitor. 8. Benign prostatic hypertrophy. Continue medical management. 9. Anemia. Continue to monitor H and H levels. 10. Dyslipidemia. Continue fish oil and statin therapy. Please note I spent 25 minutes in [id number] time discussing code status. Patient is FULL CODE. Dictated By: TARA HUSSEIN/SAW Conf#: [id number] DID#: [id number]
[2016-12-10] MEDS: VITAMIN B COMPLEX/VIT C CAP PO SCH (17:16)
[2016-12-10] MEDS: ATORVASTATIN 80 MG TAB PO SCH (21:06)
[2016-12-11] VITALS (8 sets, daily range): BP systolic 117–133; BP diastolic 58–70; PULSE 75–80; RESP 18–21
[2016-12-11] MEDS: ACCU-CHEK XX SCH (02:00)
[2016-12-11] MEDS ORDERED: ACCU-CHEK XX SCH (02:00)
[2016-12-11 06:34] LABS: ADD SCAN DIFF NO
[2016-12-11 06:37] LABS: ABNORMAL IP MESSAGE 1; HEMATOCRIT 29.6 % (42.0-52.0); HEMOGLOBIN 9.7 g/dl (14.0-18.0); MEAN CORPUSCULAR HEMOGLOBIN 29.2 pg (29.0-33.0); MEAN CORPUSCULAR HGB CONC 32.8 g/dl (32.0-37.0); MEAN CORPUSCULAR VOLUME 89.2 fl (82.0-101.0); MEAN PLATELET VOLUME 8.1 fl (7.4-10.4); PLATELET COUNT 221 10^3/UL (140-415); RED BLOOD COUNT 3.32 10^6/ul (4.70-6.10); RED CELL DISTRIBUTION WIDTH 13.5 % (11.5-14.5); WHITE BLOOD COUNT 15.9 10^3/ul (4.8-10.8)
[2016-12-11 06:56] LABS: POTASSIUM 4.8 mmol/L (3.5-5.1)
[2016-12-11 06:59] LABS: CREATININE 1.38 mg/dl (0.61-1.24)
[2016-12-11 07:00] LABS: CALCIUM 9.1 mg/dl (8.4-10.2); MAGNESIUM 1.8 mg/dl (1.7-2.5)
[2016-12-11 07:47] LABS: WHITE BLOOD COUNT 20.3 10^3/ul (4.8-10.8)
--- NOTE | 2016-12-11 08:38 | CONS ---
Date/Time of Note Date/Time of Note DATE: 12/11/16 TIME: 08:33 Assessment/Plan Assessment/Plan Chief Complaint/Hosp Course 1) pneumonia, failed out pt therapy hx of MRSA bacteremia in the past get nasal swab for MRSA get sputum cx get repeat CXR start ceftriaxone with doxycycline check procalcitonin doubt viral infection 12/10 - pt is feeling better and his WBC is around the usual level for him (CLL) can likely change to po omnicef with doxy tomorrow sputum cx is NGTD 12/11 - improved WBC is improved, sputum cx if NGTD d/c ceftriaxone, start vantin and continue with doxy thru 12/16 Rx left on chart 2) CAD with hx of IN and CABG 3)hx of lumbar osteomyelitis with MRSA bacteremia no sign of infection for this 4) CLL Problems: Consultation Date/Type/Reason Admit Date/Time Dec 09, 2016 at 10:59 Initial Consult Date 12/09/16 Type of Consultation: ID [id number] HR Interval Summary Free Text/Dictation pt is feeling better but still somewhat tired has cough but less, still has light green phlegm no N, V, D Exam/Review of Systems Vital Signs Vitals Vital Signs Date Time Temp Pulse Resp B/P Pulse Ox O2 Delivery O2 Flow Rate FiO2 12/11/16 08:04 75 12/11/16 07:41 98.9 21 128/70 97 Intake and Output 12/10/16 12/10/16 12/11/16 15:00 23:00 07:00 Intake Total 960 ml 250 ml Balance 960 ml 250 ml Exam Constitutional: alert, oriented Head: normocephalic Eyes: nl conjunctiva ENMT: mucosa pink and moist Respiratory: clear to auscultation Cardiovascular: regular rate and rhythm Gastrointestinal: non-tender, soft Results Result Diagram: 12/11/16 0620 12/11/16 0622 Results 24 hrs Laboratory Tests Test 12/10/16 11:56 12/10/16 17:08 12/10/16 21:10 12/11/16 01:40 Bedside Glucose 221 H 215 193 202 Test 12/11/16 06:20 12/11/16 06:22 White Blood Count 15.9 #H Red Blood Count 3.32 L Hemoglobin 9.7 L Hematocrit 29.6 L Mean Corpuscular Volume 89.2 Mean Corpuscular Hemoglobin 29.2 Mean Corpuscular Hemoglobin Concent 32.8 Red Cell Distribution Width 13.5 Platelet Count 221 Mean Platelet Volume 8.1 Neutrophils % Lymphocytes % Monocytes % Neutrophils # Lymphocytes # Monocytes # Sodium Level 136 Potassium Level 4.8 Chloride Level 105 Carbon Dioxide Level 25 Anion Gap 11 Blood Urea Nitrogen 33 H Creatinine 1.38 H Glucose Level 209 Calcium Level 9.1 Phosphorus Level 4.0 Magnesium Level 1.8 Medications Medications Current Medications Doxycycline Hyclate (Vibramycin) 100 mg BID PO Last administered on 12/10/16 21 :05; Admin Dose 100 MG; Start 12/09/16 at 13:00 Diagnostic Test (Pha) 1 ea 1 ea 02 XX ; Start 12/10/16 at 02:00 Ceftriaxone Sodium (Rocephin) 50 ml @ 100 mls/hr Q24H IVPB Last administered on 12/10/16 12:26; Admin Dose 100 MLS/HR; Start 12/09/16 at 13:00 Miscellaneous Information 1 ea NOTE XX ; Start 12/09/16 at 12:00 Glucose (Glutose) 15 gm Q15M PRN PO DECREASED GLUCOSE; Start 12/09/16 at 12:00 Glucose (Glutose) 22.5 gm Q15M PRN PO DECREASED GLUCOSE; Start 12/09/16 at 12:00 Dextrose (D50w Syringe) 25 ml Q15M PRN IV DECREASED GLUCOSE; Start 12/09/16 at 12:00 Dextrose (D50w Syringe) 50 ml Q15M PRN IV DECREASED GLUCOSE; Start 12/09/16 at 12:00 Glucagon (Glucagen) 1 mg Q15M PRN IM DECREASED GLUCOSE; Start 12/09/16 at 12:00 Glucose (Glutose) 15 gm Q15M PRN BUCCAL DECREASED GLUCOSE; Start 12/09/16 at 12: 00 Carvedilol (Coreg) 12.5 mg BID PO Last administered on 12/10/16 21:07; Admin Dose 12.5 MG; Start 12/09/16 at 21:00 Spironolactone (Aldactone) 25 mg MONWEDFRI PO ; Start 12/11/16 at 09:00 Aspirin (Aspirin) 81 mg DAILY PO Last administered on 12/10/16 08:21; Admin Dose 81 MG; Start 12/10/16 at 09:00 Clopidogrel Bisulfate (plaVIX) 75 mg DAILY PO Last administered on 12/10/16 08: 21; Admin Dose 75 MG; Start 12/10/16 at 09:00 Lactobacillus Acidoph/Bulgaricus (Floranex) 2 tab TID PO Last administered on 21:06; Admin Dose 2 TAB; Start 12/09/16 at 21:00 Docusate Sodium (Colace) 100 mg BID PO Last administered on 12/10/16 21:05; Admin Dose 100 MG; Start 12/09/16 at 21:00 Atorvastatin Calcium (Lipitor) 80 mg HS PO Last administered on 12/10/16 21:06 ; Admin Dose 80 MG; Start 12/09/16 at 21:00 Magnesium Oxide (Mag-Ox 400) 400 mg BID PO Last administered on 12/10/16 21:05 ; Admin Dose 400 MG; Start 12/09/16 at 21:00 Multivitamins Therapeutic (Theragran) 1 tab DAILY PO Last administered on 08:21; Admin Dose 1 TAB; Start 12/10/16 at 09:00 Fish Oil (Fish Oil) 4,000 mg AM PO Last administered on 12/10/16 08:20; Admin Dose 4,000 MG; Start 12/10/16 at 09:00 Famotidine (Pepcid) 10 mg BID PO Last administered on 12/10/16 21:05; Admin Dose 10 MG; Start 12/09/16 at 21:00 Valsartan (Diovan) 80 mg DAILY PO Last administered on 12/10/16 08:22; Admin Dose 80 MG; Start 12/10/16 at 09:00 Ascorbic Acid (Vitamin C) 250 mg DAILY PO Last administered on 12/10/16 08:21; Admin Dose 250 MG; Start 12/10/16 at 09:00 Linagliptin (Tradjenta) 5 mg DAILY PO Last administered on 12/10/16 08:21; Admin Dose 5 MG; Start 12/10/16 at 09:00 Ferrous Sulfate (Ferrous Sulfate (Ec)) 325 mg BID PO Last administered on 21:05; Admin Dose 325 MG; Start 12/09/16 at 21:00 Phenol (Cepastat Lozenge) 1 lozenge Q1H PRN [place] sore throat; Start 12/09/16 at 13 :30 Phenol (Chloraseptic Throat [place]) 2 spray Q2H PRN [place] SORE THROAT Last administered on 12/09/16 16:59; Admin Dose 2 SPRAY; Start 12/09/16 at 13:30 Cholecalciferol (Vitamin D) 5,000 unit DAILY PO Last administered on 12/10/16 08:20; Admin Dose 5,000 UNIT; Start 12/10/16 at 09:00 Diagnostic Test (Pha) (Accu-Chek) 1 02 XX ; Start 12/11/16 at 02:00 JESSICA CARBALLO MD Dec 11, 2016 08:38
[2016-12-11] MEDS ORDERED: SPIRONOLACTONE 25 MG TAB PO SCH (09:00)
[2016-12-11] MEDS ORDERED: CEFPODOXIME 200 MG TAB PO SCH (09:00)
[2016-12-11 09:18] LABS: LYMPHOCYTES # 9.7 10^3/ul (0.8-2.9); MONOCYTE # 0.6 10^3/ul (0.3-0.9); NEUTROPHIL # 5.4 10^3/ul (1.6-7.5)
[2016-12-11] MEDS: INSULIN ASPART [NOVOLOG] 3 ML PEN SC SCH (09:30)
[2016-12-11] MEDS: ASCORBIC ACID 250 MG TAB PO SCH (09:47)
[2016-12-11] MEDS: FERROUS SULFATE (EC) 325 MG TAB PO SCH (09:47)
[2016-12-11] MEDS: LACTOBACILLUS CHEW TAB PO SCH (09:47)
[2016-12-11] MEDS: FISH OIL 1,000 MG CAP PO SCH (09:47)
[2016-12-11] MEDS: DOCUSATE SODIUM 100 MG CAP PO SCH (09:47)
[2016-12-11] MEDS: metFORMIN 500 MG TAB PO SCH (09:48)
[2016-12-11] MEDS: CHOLECALCIFEROL 1,000 UNIT TAB PO SCH (09:48)
[2016-12-11] MEDS: CLOPIDOGREL 75 MG TAB PO SCH (09:48)
[2016-12-11] MEDS: DOXYCYCLINE 100 MG TAB PO SCH (09:48)
[2016-12-11] MEDS: ASPIRIN 81 MG TAB PO SCH (09:49)
[2016-12-11] MEDS: VALSARTAN 80 MG TAB PO SCH (09:49)
[2016-12-11] MEDS: LINAGLIPTIN 5 MG TABLET PO SCH (09:49)
[2016-12-11] MEDS: FAMOTIDINE 20 MG TAB PO SCH (09:49)
[2016-12-11] MEDS: MULTIVITAMINS THERAPEUTIC TAB PO SCH (09:49)
[2016-12-11] MEDS: MAGNESIUM OXIDE 400 MG TAB PO SCH (09:50)
[2016-12-11 17:11] LABS: MICROALBUMIN 9.1 mg/dL
--- NOTE | 2016-12-11 22:21 | CONS ---
Date/Time of Note Date/Time of Note DATE: 12/11/16 TIME: 09:20 Consultation Date/Type/Reason Admit Date/Time Dec 09, 2016 at 10:59 Initial Consult Date 12/09/16 Type of Consultation: ID Exam/Review of Systems Vital Signs Vitals Vital Signs Date Time Temp Pulse Resp B/P Pulse Ox O2 Delivery O2 Flow Rate FiO2 12/11/16 12:03 76 12/11/16 11:59 98.4 18 133/70 97 Intake and Output 12/10/16 12/10/16 12/11/16 15:00 23:00 07:00 Intake Total 960 ml 250 ml Balance 960 ml 250 ml Results Result Diagram: 12/11/16 0620 12/11/16 0622 Results 24 hrs Laboratory Tests Test 12/11/16 01:40 12/11/16 06:20 12/11/16 06:22 12/11/16 08:45 Bedside Glucose 202 205 White Blood Count 15.9 #H Red Blood Count 3.32 L Hemoglobin 9.7 L Hematocrit 29.6 L Mean Corpuscular Volume 89.2 Mean Corpuscular Hemoglobin 29.2 Mean Corpuscular Hemoglobin Concent 32.8 Red Cell Distribution Width 13.5 Platelet Count 221 Mean Platelet Volume 8.1 Neutrophils % 34.0 L Lymphocytes % 61.0 H Reactive Lymphocytes % 1.0 Monocytes % 4.0 Neutrophils # 5.4 Lymphocytes # 9.7 H Monocytes # 0.6 Differential Comment MANUAL DIFF Sodium Level 136 Potassium Level 4.8 Chloride Level 105 Carbon Dioxide Level 25 Anion Gap 11 Blood Urea Nitrogen 33 H Creatinine 1.38 H Glucose Level 209 Calcium Level 9.1 Phosphorus Level 4.0 Magnesium Level 1.8 JESÚS KIM MD Dec 11, 2016 22:21
--- NOTE | 2016-12-12 05:12 | DS ---
DATE OF ADMISSION: 12/09/2016 DATE OF DISCHARGE: 12/11/2016 HOSPITAL COURSE: This is a 71-year-old male with a past medical history of coronary artery disease, history of dyslipidemia, hypertension, obesity, diabetes, chronic kidney disease, history of diabet ic foot ulcer, presented to [facility] for worsening shortness of breath, cough an d inpatient management of bronchitis, possible pneumonia. The patient upon arrival was noted to hav e a white count of 18,000. He was admitted to telemetry. He was seen by infectious disease special ist, Dr. Navarro. The patient was diagnosed with pneumonia and was placed on IV antibiotics here. The patient clinically improved. Cultures were sent which were negative. The patient has been switche d to oral antibiotics and will continue for a 10-day course. The patient also on admission noted to be in nonoliguric acute kidney injury. This was felt to be secondary to hemodynamics. Patient's r enal function has fluctuated during the hospital course, but has been overall stable. The patient w ill be followed up in outpatient setting for further monitoring. The patient's other medical proble ms including coronary artery disease, diabetes, hypertension, CHF, BPH, anemia have been stable duri ng the hospital course. The patient also has CLL and his leukocytosis has been stable. He has been seen by his oncologist, Dr. Tarango. Currently, at this time, the patient will be discharged luz where he will follow up with his primary care physician, Dr. Tarango. He will follow up with in fectious disease, Dr. Navarro, and an outpatient upper shaper. At the time of discharge, the patient is stable in no acute distress. FINAL DIAGNOSES: 1. Acute bronchitis, possible pneumonia. The patient is clinically improving. We will continue wi oral antibiotics for a 10-day course. 2. Nonoliguric acute kidney injury on top of chronic kidney disease. Patient's renal function has been stable and he will be followed up in the outpatient setting. 3. Chronic lymphocytic leukemia. 4. Coronary artery disease. 5. Diabetes. 6. Hypertension. 7. Congestive heart failure, currently euvolemic. 8. Benign prostatic hypertrophy 9. Anemia. 10. Dyslipidemia. FINAL MEDICATIONS: Patient will resume his home medications of: 1. Coreg. 2. Metformin. 3. Aldactone. 4. Valsartan 5. Tradjenta. 6. Aspirin. 7. Plavix. 8. Lipitor. 9. Vitamin D. 10. Vitamin C. He will continue antibiotics of: 1. Vantin 200 mg b.i.d. 2. Doxycycline 100 mg p.o. b.i.d. for 10 days. CONDITION: At the time of discharge, the patient is stable in no acute distress. Please note I spent over 40 minutes of time preparing the patient's discharge. Dictated By: TARA HUSSEIN/SAW Conf#: [id number] DID#: [id number]
[2016-12-12 10:12] LABS: PROTEIN URINE 32.7 mg/dl (0.0-9.9)
== END 2016-12-11 12:20 | disposition home or self-care (01) | DRG 871 ==
LOC: MS4 10:59
PROVIDERS: ADMIT Internal Medicine Hematology & Oncology; ATTEND Internal Medicine Hematology & Oncology
DX: A41.9 Sepsis, unspecified organism (principal); J18.9 Pneumonia, unspecified organism; N17.9 Acute kidney failure, unspecified; I13.0 Hypertensive heart and chronic kidney disease with heart failure and stage 1 through stage 4 chronic kidney disease, or unspecified chronic kidney disease; E11.22 Type 2 diabetes mellitus with diabetic chronic kidney disease; C91.10 Chronic lymphocytic leukemia of B-cell type not having achieved remission; I50.9 Heart failure, unspecified; J40 Bronchitis, not specified as acute or chronic; N18.9 Chronic kidney disease, unspecified; D64.9 Anemia, unspecified; I25.10 Atherosclerotic heart disease of native coronary artery without angina pectoris; N40.0 Benign prostatic hyperplasia without lower urinary tract symptoms; E78.5 Hyperlipidemia, unspecified; I25.2 Old myocardial infarction; Z95.1 Presence of aortocoronary bypass graft; Z86.14 Personal history of Methicillin resistant Staphylococcus aureus infection; E11.40 Type 2 diabetes mellitus with diabetic neuropathy, unspecified; E11.621 Type 2 diabetes mellitus with foot ulcer; L97.519 Non-pressure chronic ulcer of other part of right foot with unspecified severity; M21.071 Valgus deformity, not elsewhere classified, right ankle
CPT/HCPCS: 71020; 80048; 80053; 80061; 81003; 82043; 82607; 82746; 82784; 82785; 82962; 83036; 83735; 83880; 83970; 84100; 84134; 84145; 84155; 84300; 84443; 84480; 84481; 84560; 85025; 85651; 87040; 87070; 87081; 87086; J0696; J1815